=== PATIENT | male | born 1935 | race Caucasian/White ===

== ENCOUNTER → 2016-11-19 | Day surgery (SDC) | payer OTHER, BC ==
[2016-11-14 08:42] VITALS: BMI 25.0
[~2016-11-19] VITALS: Ht 180.3 cm; Wt 81.8 kg
[~2016-11-19] MED LIST: ASCA500 PO; ATROPINE SULFATE 0.1 MG/ML 5ML SYR IV PRN; CARB25TA12 PO; CARB50TA3 PO; DOXY50CA5 PO; DULO60CA44 PO; ENTA200T PO; EpHEDrine SULFATE INJ 50 MG/ML AMP IV PRN; FERR1TAB23 PO; FLUD0.1T10 PO; LIDOCAINE HCL 2% 2 ML VIAL (20MG/ML) ONE; LOSA50TA6 PO; MULTTAB58 PO; NMN10 PO; OMEG10007 PO; ONDANSETRON INJ 2 MG/ML 2 ML VIAL IV PRN; POLY335019 PO; PROPOFOL IV EMULSION 10 MG/ML 20 ML VIAL IV ONE; RIVA1DIS TOP; SIMV20TA2 PO; [UNRECOGNIZED DRUG - OTHER] PO
[2016-11-19 09:04] VITALS: Ht 180.3 cm; Wt 81.8 kg
[2016-11-19 09:07] VITALS: TEMP 36.2
--- NOTE | 2016-11-19 09:53 | Endo History and Physical ---
History & Physical Date of Service: Nov 19, 2016. Chief Complaint: ADENOMA OF COLON Referring Physician: DEBBIE ARORA History of Present Illness Patient presenting for colon polyp surveillance. Past Surgical History Hx Cardiac Surgery: Yes (HEART CATH, NO STENTS) Hx Internal Defibrillator: No Hx Pacemaker: Yes (2012) Hx Abdominal Surgery: No Hx of Implantable Prosthesis: No Hx Post-Op Nausea and Vomiting: No Hx Cancer Surgery: Yes (PROSTATECTOMY) Hx Thoracic Surgery: No Hx Orthopedic: Yes (RT RCR) Hx Urinary Tract Surgery: No Family History None Social History Smoking Status: Never Smoker Hx Substance Use: No Hx Alcohol Use: Yes (OCCASIONAL) Allergies Coded Allergies: Adhesives (Verified Allergy, Unknown, BLISTERING AND SKIN TEARS, 11/19/16) Donepezil (Verified Allergy, Unknown, SWEATING, 11/19/16) Current Medications Reported Home Medications Medications Dose Route/Sig Max Daily Dose Days Date Category Dose Instructions Miralax (Polyethylene Glycol 3350) 1 Pow Pow 17 Gm PO QAM 11/14/16 Reported [Citrucel D] 1 Tab PO QAM 11/14/16 Reported Iron (Ferrous Sulfate) 325 Mg Tab 1 Tab PO QAM 11/14/16 Reported [place]-3 (Fish Oil) 1 Ea Cap 2 Cap PO QAM 11/14/16 Reported Multivitamin (Multiple Vitamin) 1 Tab Tab 1 Tab PO QAM 11/14/16 Reported Vitamin C (Ascorbic Acid) 500 Mg Tab 1 Tab PO QAM 11/14/16 Reported Carbidopa/Levodopa Er (Carbidopa-Levodopa) 1 Tab Tab 1 Tab PO HS 11/14/16 Reported 25MG/100MG Zocor (Simvastatin) 20 Mg Tab 20 Mg PO HS 11/14/16 Reported Comtan (Entacapone) 200 Mg Tab 200 Mg PO TID 11/14/16 Reported Sinemet 25MG/100MG (Carbidopa/Levodopa) Tab 1.5 Tab PO TID 11/14/16 Reported Namenda (Memantine) 10 Mg Tab 10 Mg PO BID 11/14/16 Reported Florinef (Fludrocortisone Acetate) 0.1 Mg Tab 0.5 Tab PO QAM 11/14/16 Reported Cymbalta (Duloxetine Hcl) 60 Mg Cap 60 Mg PO QAM 11/14/16 Reported Cozaar (Losartan Potassium) 50 Mg Tab 50 Mg PO QAM 11/14/16 Reported Doxycycline Monohydrate (Doxycycline (Monohydrate)) 50 Mg Cap 1 Tab PO QAM 11/14/16 Reported Rivastigmine Transdermal (Rivastigmine) 13.3 Mg/24 Hr Dis 1 Patch TOP DAILY 11/14/16 Reported Vital Signs Weight (Kilograms): 81.82 Height (Feet): 5 Height (Inches): 11 Date Time Temp Pulse Resp B/P Pulse Ox O2 Delivery O2 Flow Rate FiO2 11/19/16 09:07 36.2 64 20 189/88 97 Room Air Physical Exam General Appearance: no apparent distress Respiratory/Chest: Auscultation: deminished air movement Cardiovascular: Heart Auscultation: II/ MEE Abdomen: Inspection & Palpation: soft Assessment and Plan Patient for surveillance colonoscopy today due to a prior history of colon polyps. Risks discussed to include bleeding, infection, perforation, pain, infection and missed polyps.
--- NOTE | 2016-11-19 10:20 | GI REPORT ---
Procedure Date: 11/19/2016 9:53 AM Procedure: Colonoscopy Indications: High risk colon cancer surveillance: Personal history of colonic polyps Medicines: Monitored Anesthesia Care Complications: No immediate complications. Estimated blood loss: Minimal. Estimated Blood Loss: Estimated blood loss was minimal. Procedure: Pre-Anesthesia Assessment: - Prior to the procedure, a History and Physical was performed, and patient medications, allergies and sensitivities were reviewed. The patient's tolerance of previous anesthesia was reviewed. - The risks and benefits of the procedure and the sedation options and risks were discussed with the patient. All questions were answered and informed consent was obtained. - Patient identification and proposed procedure were verified prior to the procedure by the physician, the nurse and the college specialist. The procedure was verified in the procedure room. - Pre-procedure physical examination revealed no contraindications to sedation. - ASA Grade Assessment: IV - A patient with severe systemic disease that is a constant threat to life. - After reviewing the risks and benefits, the patient was deemed in satisfactory condition to undergo the procedure. - The anesthesia plan was to use monitored anesthesia care (MAC). - Immediately prior to administration of medications, the patient was re-assessed for adequacy to receive sedatives. - The heart rate, respiratory rate, oxygen saturations, blood pressure, adequacy of pulmonary ventilation, and response to care were monitored throughout the procedure. - The physical status of the patient was re-assessed after the procedure. After I obtained informed consent, the scope was passed under direct vision. Throughout the procedure, the patient's blood pressure, pulse, and oxygen saturations were monitored continuously. The scope was introduced through the anus and advanced to the cecum, identified by appendiceal orifice and ileocecal valve. The colonoscopy was performed without difficulty. The patient tolerated the procedure well. The quality of the bowel preparation was adequate to identify polyps 6 mm and larger in size. Findings: The perianal and digital rectal examinations were normal. Pertinent negatives include normal sphincter tone. A 5 mm polyp was found in the ascending colon. The polyp was sessile. The polyp was removed with a cold snare. Resection and retrieval were complete. Estimated blood loss was minimal. Many medium-mouthed diverticula were found in the entire colon. Internal hemorrhoids were found during retroflexion. The hemorrhoids were mild. The exam was otherwise without abnormality. Impression: - One 5 mm polyp in the ascending colon, removed with a cold snare. Resected and retrieved. - Moderate diverticulosis in the entire examined colon. - Internal hemorrhoids. - The examination was otherwise normal. Recommendation: - Discharge patient to home (ambulatory). - Advance diet as tolerated today. - Await pathology results. - Repeat colonoscopy is not recommended given comorbid medical problems. - Return to my office PRN. Tyler Garcia D.O. Tyler Garcia, 11/19/2016 10:19:32 AM This report has been signed electronically. Note Initiated On: 11/19/2016 9:53 AM
--- NOTE | 2016-11-19 10:21 | Discharge Instructions ---
Endoscopy Patient Instructions Date / Procedure(s) Performed Nov 19, 2016. Colonoscopy Allergy Information Coded Allergies: Adhesives (Verified Allergy, Unknown, BLISTERING AND SKIN TEARS, 11/19/16) Donepezil (Verified Allergy, Unknown, SWEATING, 11/19/16) Discharge Date / Findings Nov 19, 2016. Diverticulosis of the colon 1 small colon polyps Internal hemorrhoids Medication Instructions Stopped Medication(s): NO MEDS TODAY IRON LAST WEEK Reported Home Medications Medications Dose Route/Sig Max Daily Dose Days Date Category Dose Instructions Miralax (Polyethylene Glycol 3350) 1 Pow Pow 17 Gm PO QAM 11/14/16 Reported [Citrucel D] 1 Tab PO QAM 11/14/16 Reported Iron (Ferrous Sulfate) 325 Mg Tab 1 Tab PO QAM 11/14/16 Reported [place]-3 (Fish Oil) 1 Ea Cap 2 Cap PO QAM 11/14/16 Reported Multivitamin (Multiple Vitamin) 1 Tab Tab 1 Tab PO QAM 11/14/16 Reported Vitamin C (Ascorbic Acid) 500 Mg Tab 1 Tab PO QAM 11/14/16 Reported Carbidopa/Levodopa Er (Carbidopa-Levodopa) 1 Tab Tab 1 Tab PO HS 11/14/16 Reported 25MG/100MG Zocor (Simvastatin) 20 Mg Tab 20 Mg PO HS 11/14/16 Reported Comtan (Entacapone) 200 Mg Tab 200 Mg PO TID 11/14/16 Reported Sinemet 25MG/100MG (Carbidopa/Levodopa) Tab 1.5 Tab PO TID 11/14/16 Reported Namenda (Memantine) 10 Mg Tab 10 Mg PO BID 11/14/16 Reported Florinef (Fludrocortisone Acetate) 0.1 Mg Tab 0.5 Tab PO QAM 11/14/16 Reported Cymbalta (Duloxetine Hcl) 60 Mg Cap 60 Mg PO QAM 11/14/16 Reported Cozaar (Losartan Potassium) 50 Mg Tab 50 Mg PO QAM 11/14/16 Reported Doxycycline Monohydrate (Doxycycline (Monohydrate)) 50 Mg Cap 1 Tab PO QAM 11/14/16 Reported Rivastigmine Transdermal (Rivastigmine) 13.3 Mg/24 Hr Dis 1 Patch TOP DAILY 11/14/16 Reported Provider Instructions Activity Restrictions - No exercising or heavy lifting for 24 hours. - Do not drink alcohol the day of the procedure. - Do not drive a car or operate machinery until the day after the procedure. - Do not make any important decisions or sign important papers in 24 hours after the procedure. Following Day: - Return to full activity which may include returning to work/school. Diet Start your diet with liquids and light foods (jello, soup, juice, toast). Then eat your usual diet if not nauseated. Treatment For Common After Affects For mild abdominal pain, bloating, or excessive gas: - Rest - Eat lightly - Lie on right side Follow-Up Information Follow-up with Dr. Garcia as needed Await pathology results from today. Anesthesia Information What You Should Know You have had a procedure that required some medicine to reduce anxiety and discomfort. This treatment is called moderate sedation. After receiving the treatment, you may be sleepy, but you will be able to breathe on your own. The effects of the treatment may last for several hours. Follow these instructions along with Activity/Diet recommendations noted above: * Do NOT do anything where dizziness or clumsiness would be dangerous. * Rest quietly at home today, then you can be up and about tomorrow. * Have a responsible person stay with you the rest of today. * You may have had an I.V. today. If so, you may take the dressing off later today. Recommendations Call your doctor if: * Trouble breathing * Continuous vomiting for more than 24 hours * Temperature above 101 degrees * Severe abdominal pain or bloating * Pain not relieved by pain medicine ordered * There is increased drainage or redness from any incision * A large amount of rectal bleeding greater than 2-3 tablespoons. (If you had a polyp/s removed or have hemorrhoids, a small amount of blood - from the rectum is to be expected.) * You have any unanswered questions or concerns. IN THE EVENT OF A SERIOUS EMERGENCY, GO TO THE NEAREST EMERGENCY ROOM Your discharge instructions were prepared by provider Tyler Garcia. Patient Instructions Signature Page George Serra Patient (or Guardian) Signature/Date: I have read and understand the instructions given to me by my caregivers. Caregiver/RN/Doctor Signature/Date: The above-named patient and/or guardian has received patient instructions on this date. + Original Patient Signature Page (only) stays with chart. Please make copy for patient.
[2016-11-19 10:48] VITALS: BP 177/78; PULSE 60; O2SAT 99
--- NOTE | 2016-11-19 10:49 | Anesthesiology Progress Note ---
Anesthesia Post Op Note Date & Time Nov 19, 2016 at 10:49 Vital Signs Pain Intensity: 0 Vital Signs Past 12 Hours Date Time Temp Pulse Resp B/P Pulse Ox O2 Delivery O2 Flow Rate FiO2 11/19/16 10:29 60 18 163/80 99 Room Air 11/19/16 10:17 60 18 164/67 98 Room Air 11/19/16 09:07 36.2 64 20 189/88 97 Room Air Notes Mental Status: alert / awake / arousable, participated in evaluation Pt Amnestic to Procedure: Yes Nausea / Vomiting: adequately controlled Pain: adequately controlled Airway Patency, RR, SpO2: stable & adequate BP & HR: stable & adequate Hydration State: stable & adequate Anesthetic Complications: no major complications apparent
== END | disposition home or self-care (01) ==
LOC: C.GI 08:42
PROVIDERS: ATTEND Internal Medicine Gastroenterology
DX: Z12.11 Encounter for screening for malignant neoplasm of colon (principal); Z86.010 Personal history of colon polyps; D12.2 Benign neoplasm of ascending colon; K57.90 Diverticulosis of intestine, part unspecified, without perforation or abscess without bleeding; K64.8 Other hemorrhoids; F32.9 Major depressive disorder, single episode, unspecified; G47.33 Obstructive sleep apnea (adult) (pediatric); G20 Parkinson's disease; I25.10 Atherosclerotic heart disease of native coronary artery without angina pectoris; I10 Essential (primary) hypertension; G30.9 Alzheimer's disease, unspecified; F02.80 Dementia in other diseases classified elsewhere, unspecified severity, without behavioral disturbance, psychotic disturbance, mood disturbance, and anxiety; Z98.890 Other specified postprocedural states; Z85.46 Personal history of malignant neoplasm of prostate

== ENCOUNTER → 2017-12-30 | Outpatient (CLI) | payer OTHER, BC ==
[~2017-12-30] MED LIST changes: -ATROPINE SULFATE 0.1 MG/ML 5ML SYR IV PRN; -EpHEDrine SULFATE INJ 50 MG/ML AMP IV PRN; -LIDOCAINE HCL 2% 2 ML VIAL (20MG/ML) ONE; -ONDANSETRON INJ 2 MG/ML 2 ML VIAL IV PRN; -PROPOFOL IV EMULSION 10 MG/ML 20 ML VIAL IV ONE
--- NOTE | 2017-12-30 14:30 | DIAGNOSTIC IMAGING REPORT ---
VIDEO SWALLOW STUDY CLINICAL HISTORY: Dysphagia. Parkinson's disease. COMPARISON STUDY: No priors. Fluoroscopy time: 2.3 minutes. FINDINGS: Fluoroscopic guidance was provided to the Department of Speech Pathology in performing a video swallow study. The patient consumed barium-impregnated pudding, cracker with paste, nectar thick liquids, honey thick liquid as well as thin barium while the swallowing mechanism was observed in real-time. No penetration or aspiration was identified. Esophageal dysmotility is observed. Mild pharyngeal residuals were noted. Pacemaker leads are observed. IMPRESSION: 1. No penetration or aspiration was seen with any of the sampled textures. 2. See dedicated speech pathology report for detailed findings and recommendations. Dictated: 12/30/2017 2:02 PM Transcribed: 12/30/2017 2:29 PM [email or web address] Electronically signed by: David Zaragoza M.D. 12/30/2017 2:30 PM Dictated Date/Time: 12/30/2017 2:02 PM
--- NOTE | 2017-12-30 15:10 | SWALLOWING EVALUATION ---
HISTORY: This 82 year-old man, from home, was referred for a VFSS at [facility] secondary to complaints of coughing and feeling as if food is occasionally stuck in throat as well as belching. Currently the patient's diet level is regular with thins. Pt. has a past medical history significant for Parkinson's, adenomas of colon. PROCEDURE: The patient was seen in the Radiology Department of [facility] for the VFSS. Cursory examination of the oral cavity revealed adequate dentition. Movement of the articulators was WNL - noted slight tremor. The patient was seated in a wheelchair and was viewed in both the Anterior-Posterior (A-P) and Lateral planes. Volitional phonation exercises completed in the A-P plane revealed bilateral vocal fold movement and vocal intensity within functional limits. In the lateral plane, the patient was given the following barium-infused boluses: 1 tsp thin barium with oral hold 1x, self presented single cup swallow-thin barium 1x, self presented serial cup swallow 1x. 1 tsp nectar thick barium with oral hold 1x, self presented single cup swallow- nectar thick barium 1x. Esophageal scan was completed with 1 tsp of barium infused pudding. RESULTS: Oral Phase: Pt. had no labial escape of any food or liquid items presented. Pt. demonstrated a cohesive bolus between tongue and palatal seal. Timely and efficient chewing and mashing was observed with all consistencies as well as brisk tongue motion and complete oral clearance. Initiation of pharyngeal swallow began with bolus head in the valleculae. Noted single instance of food dropping to the posterior floor of the oral cavity. Overall WFL for oral phase of swallow. Pharyngeal Phase: Soft Palate Elevation was complete for all boluses. Laryngeal elevation and movement of thyroid cartilage was slightly reduced howevercomplete approximation of arytenoids to epiglottic base. Anterior Hyoid excursion was WFL and complete epiglottic inversion noted. Laryngeal Vestibular closure was complete with with a mild column of barium noted in laryngeal vestibule and on the valleculae. Tongue base retraction was noted with all consistencies and tongue base made effective contact with posterior pharyngeal wall throughout study. Mild pharyngeal residue was observed. With increased textured food items noted small amount of food resting on the UES. Pt. was cued to complete chin tuck with double swallow and was able to effectively clear. Overall WFL for pharyngeal phase of the swallow. Pt. did NOT aspirate or penetrate on food items presented. Esophageal Phase: Opening and closing of the UES noted. Pt. had notable narrowing of the esophagus with retrograde motion. Pt. presented with Esophageal dysfunction ~ recommending consideration for barium swallow study to further evaluate esophageal stage of the swallow- if pt continues to experience discomfort. SUMMARY/RECOMMENDATIONS: Overall pt. presented as WFL for oral-pharyngeal stages of the swallow. NO penetration of aspiration occurred. Pt. presented with Esophageal dysfunction ~ recommending consideration for barium swallow study to further evaluate esophageal stage of the swallow- if pt continues to experience discomfort. Recommendin. SLIPPERY moist regular diet with thin liquids. 2. GI Consult- IF pt continues to experience discomfort 3. GERD precautions - upright for 30 min after all intake, no intake 30 min before bed, keep head of bed elevated at least 30 degrees at all times, alternate consistencies. Pt. and were given written GERD precautions and diet recommendations. GI consult is recommended. Thank you for referral of this patient. Please contact me at if any additional information is needed.
== END | disposition home or self-care (01) ==
LOC: C.RAD 13:01
PROVIDERS: ATTEND Psychiatry & Neurology Neurology
DX: R13.10 Dysphagia, unspecified (principal)

== ENCOUNTER → 2018-01-09 | Outpatient (CLI) | payer OTHER, BC ==
--- NOTE | 2018-01-09 09:21 | DIAGNOSTIC IMAGING REPORT ---
(BARIUM SWALLOW) ESOPHAGUS CLINICAL HISTORY: 82 years-old Male presenting with GASTROESOPHAGEAL REFLUX DISEASE W/O ESOPHAGITIS. TECHNIQUE: A standard air contrast barium esophagram is performed. Multiple spot images of the esophagus are acquired both upright and prone. COMPARISON: Barium swallow study from 12/30/2017. FINDINGS: The patient was able to ingest barium and the barium pill without difficulty. Normal mucosal pattern. No evidence of intrinsic or extrinsic mass lesion. No aspiration observed. Tertiary contractions evident in the esophagus. The gastroesophageal junction distended normally. No observed gastroesophageal reflux. Fluoroscopy dosage (mGy): Not available. Fluoroscopy time: 1.5 minutes. Number of fluoroscopic spot images: 24. 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 Otherwise unremarkable fluoroscopic examination of the esophagus. Electronically signed by: Stanislaw Tapia M.D. 01/09/2018 9:19 AM Dictated Date/Time: 01/09/2018 9:19 AM
== END | disposition home or self-care (01) ==
LOC: C.RAD 01-08 09:58
PROVIDERS: ATTEND Physician Assistant
DX: R13.10 Dysphagia, unspecified (principal); K22.9 Disease of esophagus, unspecified